=== PATIENT | female | born 1970 | race Caucasian/White ===

== ENCOUNTER 2019-05-08 06:00 | Outpatient (RCR) | payer MEDICAID, SELFPAY | END 2019-05-22 23:59 | disposition home or self-care (01) | LOC: MPT 06:00 | PROVIDERS: Family Provider Family Medicine; PCP Social Worker Clinical; Referring Provider Family Medicine; Visit Provider Family Medicine | DX: G89.29 Other chronic pain (principal); M54.9 Dorsalgia, unspecified | CPT/HCPCS: 97110; 97161; 97530 ==

== ENCOUNTER 2019-05-23 06:00 | Outpatient (RCR) | payer MEDICAID, SELFPAY | END 2019-06-21 23:59 | disposition home or self-care (01) | LOC: MPT 06:00 | PROVIDERS: Family Provider Family Medicine; PCP Social Worker Clinical; Referring Provider Family Medicine; Visit Provider Family Medicine | DX: G89.29 Other chronic pain (principal); M54.9 Dorsalgia, unspecified | CPT/HCPCS: 97110; 97530 ==

== ENCOUNTER 2019-06-22 06:00 | Outpatient (RCR) | payer MEDICAID, SELFPAY | END 2019-07-22 23:59 | disposition home or self-care (01) | LOC: MPT 06:00 | PROVIDERS: PCP Social Worker Clinical; Referring Provider Family Medicine; Visit Provider Family Medicine | DX: G89.29 Other chronic pain (principal); M54.9 Dorsalgia, unspecified | CPT/HCPCS: 97110; 97530 ==

== ENCOUNTER 2019-07-23 06:00 | Outpatient (RCR) | payer MEDICAID, SELFPAY | END 2019-08-21 23:59 | disposition home or self-care (01) | LOC: MPT 06:00 | PROVIDERS: PCP Family Medicine; Visit Provider Family Medicine | DX: G89.29 Other chronic pain (principal); M54.9 Dorsalgia, unspecified | CPT/HCPCS: 97110; 97530 ==

== ENCOUNTER 2019-07-30 09:07 | Outpatient (CLI) | payer MEDICAID, SELFPAY ==
--- NOTE | 2019-07-30 09:23 | MR_ITS ---
WS: [id number] MRI RIGHT SHOULDER NONCONTRAST TECHNIQUE: Sagittal T2, coronal T1, T2 and proton density imaging. Axial gradient PDE imaging. CLINICAL INFORMATION: M24.811 Other specific joint derangements of right should. COMPARISON: None. FINDINGS: Prior postoperative changes right rotator cuff repair. Moderate degenerative changes at the AC joint with mild downsloping of the acromion with slight subacromial spurring. Edema at the AC joint with mi ld synovial thickening. Rotator cuff appears grossly intact. Mild tendinopathy in the distal supraspi natus. Normal infraspinatus. Normal teres minor. Normal subscapularis. Normal biceps tendon in the bicipital groove. Normal rotator cuff anchor. Glenoid labrum appears hermila sly normal. Normal bone marrow signal. Intra-articular biceps tendon is normal in appearance. MR/MR shoulder RT wo con* [id number] IMPRESSION: 1. Prior postoperative changes right rotator cuff repair. No acute appearing r otator cuff tears. 2. Mild tendinopathy in the distal supraspinatus. Rotator cuff is otherwise un remarkable. 3. Moderate degenerative arthritis AC joint with mild downsloping acromion, a small amount of subacromial/subdeltoid edema. 4. Normal biceps tendon in the bicipital groove. Normal biceps labral anchor. 5. Glenoid labrum appears grossly unremarkable.
== END 2019-07-30 09:08 | disposition home or self-care (01) ==
LOC: RADWPI 09:12
PROVIDERS: PCP Family Medicine; Visit Provider Emergency Medicine
DX: M24.811 Other specific joint derangements of right shoulder, not elsewhere classified (principal); M13.811 Other specified arthritis, right shoulder
CPT/HCPCS: 73221

== ENCOUNTER → 2020-06-04 09:38 | Outpatient (BNVA) | payer MEDICAID, SELFPAY | PROVIDERS: Family Provider Family Medicine; PCP Family Medicine; Visit Provider Registered Nurse | DX: F33.1 Major depressive disorder, recurrent, moderate (principal); F43.12 Post-traumatic stress disorder, chronic | CPT/HCPCS: 36415; 82306 ==

== ENCOUNTER → 2020-06-09 09:50 | Outpatient (BNVA) | payer MEDICAID, SELFPAY | PROVIDERS: Family Provider Family Medicine; PCP Family Medicine; Visit Provider Family Medicine | DX: R53.83 Other fatigue (principal); Z13.1 Encounter for screening for diabetes mellitus; Z13.6 Encounter for screening for cardiovascular disorders; K90.49 Malabsorption due to intolerance, not elsewhere classified; Z86.19 Personal history of other infectious and parasitic diseases; R79.89 Other specified abnormal findings of blood chemistry; R53.82 Chronic fatigue, unspecified; E55.9 Vitamin D deficiency, unspecified; S46.911A Strain of unspecified muscle, fascia and tendon at shoulder and upper arm level, right arm, initial encounter; M54.9 Dorsalgia, unspecified; G89.29 Other chronic pain | CPT/HCPCS: 80053; 80061; 82607; 84443; 85025; 86003 ==

== ENCOUNTER → 2021-07-03 13:21 | Outpatient (BNVA) | payer BC, MEDICAID, SELFPAY | PROVIDERS: Family Provider Family Medicine; PCP Family Medicine; Visit Provider Emergency Medicine | DX: I10 Essential (primary) hypertension (principal); R63.5 Abnormal weight gain; Z86.39 Personal history of other endocrine, nutritional and metabolic disease | CPT/HCPCS: 80053; 80061; 83880; 84443; 85025 ==

== ENCOUNTER → 2022-03-20 16:18 | Outpatient (BNVA) | payer BC, MEDICAID, SELFPAY | PROVIDERS: Family Provider Family Medicine; PCP Family Medicine; Visit Provider Nurse Practitioner Family | DX: R68.89 Other general symptoms and signs (principal); B34.9 Viral infection, unspecified; B37.31 Acute candidiasis of vulva and vagina | CPT/HCPCS: 87071; 87077; 87184; 87400; 87426; 87880 ==

== ENCOUNTER → 2022-10-03 13:31 | Outpatient (BNVA) | payer BC, MEDICAID, SELFPAY | PROVIDERS: Family Provider Family Medicine; PCP Family Medicine; Visit Provider Emergency Medicine | DX: M79.672 Pain in left foot (principal) | CPT/HCPCS: 73630 ==

== ENCOUNTER → 2022-12-27 10:54 | Outpatient (BNVA) | payer BC, MEDICAID, SELFPAY | PROVIDERS: Family Provider Family Medicine; PCP Family Medicine; Visit Provider Nurse Practitioner Family | DX: R39.9 Unspecified symptoms and signs involving the genitourinary system (principal); J01.90 Acute sinusitis, unspecified; B96.89 Other specified bacterial agents as the cause of diseases classified elsewhere; B37.31 Acute candidiasis of vulva and vagina; N10 Acute pyelonephritis; N93.9 Abnormal uterine and vaginal bleeding, unspecified | CPT/HCPCS: 81000 ==

== ENCOUNTER → 2022-12-28 09:45 | Outpatient (BNVA) | payer BC, MEDICAID, SELFPAY | PROVIDERS: Family Provider Family Medicine; PCP Family Medicine; Visit Provider Nurse Practitioner | DX: N93.9 Abnormal uterine and vaginal bleeding, unspecified (principal); R53.83 Other fatigue; Z86.39 Personal history of other endocrine, nutritional and metabolic disease; N12 Tubulo-interstitial nephritis, not specified as acute or chronic; Z76.89 Persons encountering health services in other specified circumstances; B37.9 Candidiasis, unspecified | CPT/HCPCS: 80053; 82306; 82607; 83735; 84443; 85025; 87086 ==

== ENCOUNTER → 2023-01-19 09:56 | Outpatient (BNVA) | payer BC, MEDICAID, SELFPAY | PROVIDERS: Family Provider Family Medicine; PCP Family Medicine; Referring Provider Nurse Practitioner; Visit Provider Obstetrics & Gynecology | DX: R30.0 Dysuria (principal); Z12.4 Encounter for screening for malignant neoplasm of cervix; Z12.39 Encounter for other screening for malignant neoplasm of breast | CPT/HCPCS: 84315; 87086; 87624 ==

== ENCOUNTER → 2023-02-02 11:18 | Outpatient (BNVA) | payer BC, MEDICAID, SELFPAY | PROVIDERS: Family Provider Family Medicine; PCP Family Medicine; Visit Provider Obstetrics & Gynecology | DX: N93.9 Abnormal uterine and vaginal bleeding, unspecified (principal) | CPT/HCPCS: 76830 ==

== ENCOUNTER 2023-02-18 16:58 | Observation (INO) | payer BC, MEDICAID, SELFPAY ==
[2023-02-18 17:00] VITALS: BP 173/102; PULSE 75; RESP 18; TEMP 36.6; O2SAT 98; BMI 20.7
--- NOTE | 2023-02-18 17:03 | CTR_ITS ---
PROCEDURE INFORMATION: Exam: CT Head Without Contrast Exam date and time: 02/18/2023 5:14 PM Age: 52 years old Clinical indication: Altered mental status/memory loss; Confusion or disorientation; Additional info: TIA TECHNIQUE: Imaging protocol: Computed tomography of the head without contrast. Radiation optimization: All CT scans at this facility use at least one of these dose optimization techniques: automated exposure control; mA and/or kV adjustment per patient size (includes targeted exams where dose is matched to clinical indication); or iterative reconstruction. REPORTING DATA: Count of CT and Cardiac NM exams in prior 12 months: This patient has received 0 known CTs and 0 known cardiac nuclear medicine studies in the 12 months prior to the current study. COMPARISON: No relevant prior studies available. RADIATION DOSE METRICS: Total DLP (mGy-cm): 980.88 FINDINGS: Brain: No midline shift. Ventricles, cisterns, and sulci are normal. No mass, acute infarct, hemorrhage, or extraaxial fluid collection. Cerebral ventricles: No ventriculomegaly. Paranasal sinuses: Visualized sinuses are unremarkable. No fluid levels. Mastoid air cells: Visualized mastoid air cells are well aerated. Bones/joints: Unremarkable. No acute fracture. Soft tissues: Unremarkable. CT/CT head wo con* [id number] IMPRESSION: No acute intracranial abnormality.
--- NOTE | 2023-02-18 17:03 | XRR_ITS ---
PROCEDURE INFORMATION: Exam: XR Chest Exam date and time: 02/18/2023 5:31 PM Age: 52 years old Clinical indication: Patient HX: Lt side weakness/numbness; Fever; TIA; Ex smoker TECHNIQUE: Imaging protocol: Radiologic exam of the chest. Views: 1 view. COMPARISON: MR shoulder RT wo con* [id number] 07/30/2019 9:27 AM FINDINGS: Lungs: Unremarkable. No consolidation. Pleural spaces: Unremarkable. No pleural effusion. No pneumothorax. Heart/Mediastinum: Unremarkable. No cardiomegaly. Bones/joints: Unremarkable. XR/XR chest 1V portable [id number] IMPRESSION: No acute findings.
--- NOTE | 2023-02-18 17:06 | ED_ITS ---
HPI - Neuro Symptoms/Deficit 2 General: Chief Complaint: General Medical Stated Complaint: visual disturbance Time Seen by Provider: 02/18/23 17:00 Source: patient and EMS Mode of arrival: EMS Limitations: no limitations History of Present Illness: 52-year-old female states she was at [facility] today at 3 PM she states that she had had left-sided weakness along with blurred vision and slurred speech. She states this lasted roughly 30 minutes she states her symptoms of all resolved she has no slurred speech. She has full range of motion denies any history of stroke or TIA in the past. She does have migraines states she has a very mild headache Associated symptoms: Deny chest pain, headache(s), nausea or vomiting Review of Systems 2 Const: Denies: fever(s), chills, body aches or change in appetite Eyes: Reports: blurry vision; Denies: eye discomfort ENMT: Denies: throat pain or dental pain Card: Denies: chest pain Resp: Denies: dyspnea GI: Denies: abdominal pain, nausea, vomiting or diarrhea Musc: Denies: neck pain or back pain Skin/Breast: Denies: rash Neuro: Reports: numbness in extremities and weakness in extremities; Denies: headache(s) PFSH ED 2 PFSH: Medical History (Updated 02/18/23 @ 18:56 by Deann Marrero MD) Blurred vision, bilateral Stroke-like symptoms History of thyroid disease Weight gain High blood pressure determined by examination Internal derangement of right shoulder Right shoulder strain Irritable bowel syndrome Psoriasis Post-traumatic stress disorder, chronic Major depressive disorder, recurrent, moderate Surgical History H/O colonoscopy H/O esophagogastroduodenoscopy 09/2000 Hx of cholecystectomy History of repair of hiatal hernia History of nasal surgery History of prior ablation treatment uterine Family History Sister Anesthesia complication Mother Heart disease Other Bleeding disorder Diabetes Social History Smoking and tobacco/nicotine status: former use of tobacco/nicotine Second hand smoke exposure: No Alcohol intake: never Substance/Drug Use: never Household members: spouse Marital status: Current occupational status: disabled Current gender identity: Female Female Reproductive History: Spontaneous abortions: No NIH stroke score 2 NIHSS: Level Of Consciousness - 1a: 0 Level Of Consciousness Questions - 1b: Both Correct Level Of Consciousness Commands - 1c: Both Correct Best Gaze - 2: Normal Visual Mcclellan - 3: No Visual Loss Facial Palsy - 4: N ormal Motor Arm Right - 5: No Drift Motor Arm Left - 5: No Drift Motor Leg Right - 6: No Drift Motor Leg Left - 6: No Drift Limb Ataxia - 7: A bsent Sensory - 8: Normal Best Language - 9: No Aphasia Dysarthia - 10: Normal Extinction And Inattention - 11: 0 Score: Total Score: 0 Physical Exam 2 Const: COMMON NORMALS: no acute distress, patient oriented x3 and healthy appearing HENMT: COMMON NORMALS: normocephalic and atraumatic HEAD & SCALP: n ormocephalic and atraumatic Neck/C-Spine: COMMON NORMALS: full ROM and supple Chest: COMMONS NORMALS: normal inspection of the chest Resp: COMMON NORMALS: normal respiratory effort Cardio: COMMON NORMALS: regular rate, regular rhythm and No murmurs present (Cardio) RATE: regular rate RHYTHM: regular rhythm Extremity: COMMON NORMALS: normal to inspection and full ROM Neuro: COMMON NORMALS: patient oriented x3, moves all extremities and no focal motor deficits CRANIAL NERVES: Yes CN normal except as noted SPEECH: s peech normal GAIT: Yes Normal gait present MOTOR EXAM: 5/5 motor strength present throughout Psych: COMMON NORMALS: mental status grossly normal, Normal thought process present and cooperative THOUGHT PROCESS: Normal thought process present Skin: COMMON NORMALS: no rashes or lesions noted and no wounds GENERAL SKIN EXAM: no rashes or lesions noted Course 2 Vital Signs: Vital signs: Vital Signs Temperature 97.8 F 02/18/23 17:00 Pulse Rate 75 02/18/23 17:00 Respiratory Rate 18 02/18/23 17:00 Blood Pressure 173/102 02/18/23 17:00 Pulse Oximetry 98 02/18/23 17:00 Oxygen Delivery Me thod Room Air 02/18/23 17:00 MDM - Neuro Symptoms/Deficit Medical Decision Making Patient presents here with left-sided weakness blurred vision and slurred speech is all since resolved likely a TIA no history of TIA in the past spoke to the hospitalist will admit for observation. Medical Records I reviewed the patient's medical records. Lab Data I reviewed the patient's lab results. 02/18/23 17:47 02/18/23 17:47 Radiology Impressions Chest X-Ray 02/18/23 17:03 IMPRESSION: No acute findings. Head CT 02/18/23 17:03 IMPRESSION: No acute intracranial abnormality. Laboratory Results WBC 4.81 10^3/uL (3.29-11.43) 02/18/23 17:47 RBC 4.48 10^6/uL (3.85-5.65) 02/18/23 17:47 Hgb 13.90 g/dL (11.27-16.99) 02/18/23 17:47 Hct 42.6 % (36-47) 02/18/23 17:47 MCV 95.1 fl (85-98) 02/18/23 17:47 MCH 31.0 pg (27-33) 02/18/23 17:47 MCHC 32.6 g/dL (30-55) 02/18/23 17:47 RDW 12.6 % (12.1-15.1) 02/18/23 17:47 Plt Count 228 10^3/cmm (157-399) 02/18/23 17:47 MPV 9.5 fL (7.4-10.4) 02/18/23 17:47 Neut % (Auto) 58.6 % 02/18/23 17:47 Lymph % (Auto) 29.9 % 02/18/23 17:47 [place] % (Auto) 9.1 % 02/18/23 17:47 Eos % (Auto) 1.2 % 02/18/23 17:47 Baso % (Auto) 1.0 % 02/18/23 17:47 Neut # (Auto) 2.81 10^3/uL (1.8-7.7) 02/18/23 17:47 Lymph # (Auto) 1.4 10^3/uL (0.8-4.8) 02/18/23 17:47 [place] # (Auto) 0.4 10^3/uL (0.2-0.9) 02/18/23 17:47 Eos # (Auto) 0.1 10^3/uL (0.0-0.8) 02/18/23 17:47 Baso # (Auto) 0.1 10^3/uL (0.0-0.1) 02/18/23 17:47 Nucleated RBC % (auto) 0 % 02/18/23 17:47 Nucleated RBCs # 0.0 /100WBC 02/18/23 17:47 PT 13.70 SECONDS (12.1-14.9) 02/18/23 17:47 INR 1.02 (0.8-1.2) 02/18/23 17:47 Sodium 141 mmol/L (136-145) 02/18/23 17:47 Potassium 4.4 mmol/L (3.5-5.1) 02/18/23 17:47 Chloride 104 mmol/L (98-107) 02/18/23 17:47 Carbon Dioxide 26 mmol/L (22-29) 02/18/23 17:47 Anion Gap 15.4 (5-19) 02/18/23 17:47 BUN 9 mg/dL (6-20) 02/18/23 17:47 Creatinine 0.8 mg/dL (0.5-0.9) 02/18/23 17:47 GFR Calculation 75.9 mL/min (90-130) L 02/18/23 17:47 Glucose 118 mg/dL (65-115) H 02/18/23 17:47 Calculated Osmolality 292 mOsm/kg (285-295) 02/18/23 17:47 Calcium 9.4 mg/dL (8.5-10.5) 02/18/23 17:47 Total Bilirubin 0.4 mg/dL (0.15-1.2) 02/18/23 17:47 AST 14 U/L (0-32) 02/18/23 17:47 ALT 9 U/L (0-33) 02/18/23 17:47 Alkaline Phosphatase 57 U/L (35-105) 02/18/23 17:47 Total Protein 6.9 g/dL (6.6-8.7) 02/18/23 17:47 Albumin 4.5 g/dL (3.5-5.2) 02/18/23 17:47 Globulin 2.4 g/dL (1.3-4.6) 02/18/23 17:47 All radiology interpretation(s) finalized by discharge EKG Data EKG 1: I personally reviewed and interpreted this EKG as follows: EKG interpretation date: 02/18/23 EKG interpretation time: 17:10 Interpretation: nsr hr [address] or t wave abnormalities qrs 94 qtc 427 Discharge Plan Discharge Patient Disposition: Placed in Observation Clinical Impression: Brain TIA Referrals: Ana Damico DO [Physician] - Maria Isabel Ramos MD [Primary Care Provider] - Coding Level of Care Code ED Bilingual Teacher Assistant for Chg Surekha
--- NOTE | 2023-02-18 17:10 | ECG_ITS ---
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 Measurements Intervals Rodeo Rate: 75 P: 55 NH: 137 QRS: -9 QRSD: 94 T: 46 QT: 398 QTc: 446 Interpretive Statements SINUS RHYTHM LEFT ATRIAL ENLARGEMENT [-0.15mV P-WAVE IN V1/V2] POSSIBLE RIGHT VENTRICULAR CONDUCTION DELAY [RSR (QR) IN V1/V2] No previous ECG available for comparison Electronically Signed On 02-18-2023 17:28:41 SCRAP KETTLE TENDER by Luis Miguel Willoughby M.D. [id number]
[2023-02-18 18:04] LABS: Basophils # 0.1 10^3/uL (0.0-0.1); Eosinophils # 0.1 10^3/uL (0.0-0.8); Eosinophils % 1.2 %; Hematocrit 42.6 % (36-47); Lymphocytes # 1.4 10^3/uL (0.8-4.8); Lymphocytes % 29.9 %; Mean Corpuscular HGB Conc 32.6 g/dL (30-55); Mean Corpuscular Volume 95.1 fl (85-98); Mean Platelet Volume 9.5 fL (7.4-10.4); Monocytes # 0.4 10^3/uL (0.2-0.9); Monocytes % 9.1 %; Neutrophils # 2.81 10^3/uL (1.8-7.7); Neutrophils % 58.6 %; Nucleated Red Blood Cells % 0 %; Platelet Count 228 10^3/cmm (157-399); Red Blood Count 4.48 10^6/uL (3.85-5.65); Red Cell Distribution Width 12.6 % (12.1-15.1); White Blood Count 4.81 10^3/uL (3.29-11.43)
[2023-02-18 18:22] LABS: INR 1.02 (0.8-1.2)
[2023-02-18 18:34] LABS: Alanine Aminotransferase 9 U/L (0-33); Albumin Level 4.5 g/dL (3.5-5.2); Alkaline Phosphatase 57 U/L (35-105); Aspartate Amino Transferase 14 U/L (0-32); Blood Urea Nitrogen 9 mg/dL (6-20); Calcium 9.4 mg/dL (8.5-10.5); Carbon Dioxide 26 mmol/L (22-29); Chloride 104 mmol/L (98-107); Globulin 2.4 g/dL (1.3-4.6); Glomerular Filtration Rate 75.9 mL/min (90-130); Glucose 118 mg/dL (65-115); Osmolality Calculated 292 mOsm/kg (285-295); Sodium 141 mmol/L (136-145); Total Bilirubin 0.4 mg/dL (0.15-1.2); Total Protein 6.9 g/dL (6.6-8.7)
[2023-02-18 18:35] LABS: Anion Gap 15.4 (5-19); Potassium 4.4 mmol/L (3.5-5.1)
[2023-02-18] MEDS: aspirin 81 mg Chew Tablet 324 MG PO (19:03)
--- NOTE | 2023-02-18 19:39 | CTR_ITS ---
PROCEDURE INFORMATION: Exam: CTA Head With Contrast, Arteriography Exam date and time: 02/18/2023 7:45 PM Age: 52 years old Clinical indication: Numbness and speech disturbance and visual disturbance; Other visual defect; Patient HX: Left sided numbness with blurred vision and slurred speech. ; Additional info: TIA, CT angiogram cervical and intracranial vessels TECHNIQUE: Imaging protocol: Computed tomographic angiography of the head with contrast. Exam focused on the arteries. 3D rendering (Not supervised by radiologist): MIP and/or 3D reconstructed images were created by the technologist. Radiation optimization: All CT scans at this facility use at least one of these dose optimization techniques: automated exposure control; mA and/or kV adjustment per patient size (includes targeted exams where dose is matched to clinical indication); or iterative reconstruction. Contrast material: OMNI 350; Contrast volume: 100 ml; Contrast route: INTRAVENOUS (IV); REPORTING DATA: Count of CT and Cardiac NM exams in prior 12 months: This patient has received 0 known CTs and 0 known cardiac nuclear medicine studies in the 12 months prior to the current study. COMPARISON: CT head wo con* [id number] 02/18/2023 5:14 PM RADIATION DOSE METRICS: Total DLP (mGy-cm): 384.77 FINDINGS: ANTERIOR CIRCULATION: Right internal carotid artery: Intracranial segment is patent with no significant stenosis. No aneurysm. Right middle cerebral artery: No occlusion or significant stenosis. No aneurysm. Right anterior cerebral artery: No occlusion or significant stenosis. No aneurysm. Left internal carotid artery: Intracranial segment is patent with no significant stenosis. No aneurysm. Left middle cerebral artery: No occlusion or significant stenosis. No aneurysm. Left anterior cerebral artery: No occlusion or significant stenosis. No aneurysm. POSTERIOR CIRCULATION: Right vertebral artery: No occlusion or significant stenosis. No aneurysm. Left vertebral artery: No occlusion or significant stenosis. No aneurysm. Basilar artery: No occlusion or significant stenosis. No aneurysm. Right posterior cerebral artery: No occlusion or significant stenosis. No aneurysm. Left posterior cerebral artery: No occlusion or significant stenosis. No aneurysm. Brain: No definite mass, mass effect, or midline shift. Cerebral ventricles: No ventriculomegaly. Bones/joints: Unremarkable. No acute fracture. Soft tissues: Unremarkable. PROCEDURE INFORMATION: Exam: CTA Neck With Contrast Exam date and time: 02/18/2023 7:45 PM Age: 52 years old Clinical indication: Numbness and speech disturbance and visual disturbance; Other visual defect; Patient HX: Left sided numbness with blurred vision and slurred speech. ; Additional info: TIA, CT angiogram cervical and intracranial vessels TECHNIQUE: Imaging protocol: Computed tomographic angiography of the neck with contrast. Exam focused on the cervical segments of the vasculature. 3D rendering (Not supervised by radiologist): MIP and/or 3D reconstructed images were created by the technologist. Radiation optimization: All CT scans at this facility use at least one of these dose optimization techniques: automated exposure control; mA and/or kV adjustment per patient size (includes targeted exams where dose is matched to clinical indication); or iterative reconstruction. Contrast material: OMNI 350; Contrast volume: 100 ml; Contrast route: INTRAVENOUS (IV); REPORTING DATA: Count of CT and Cardiac NM exams in prior 12 months: This patient has received 0 known CTs and 0 known cardiac nuclear medicine studies in the 12 months prior to the current study. COMPARISON: CT head wo con* [id number] 02/18/2023 5:14 PM RADIATION DOSE METRICS: Total DLP (mGy-cm): 384.77 FINDINGS: Right common carotid artery: No stenosis. No dissection or occlusion. Right internal carotid artery: Mild stenosis at the origin. No dissection or occlusion. Right external carotid artery: No occlusion or stenosis of the origin. Left common carotid artery: No stenosis. No dissection or occlusion. Left internal carotid artery: Mild stenosis at the origin. No dissection or occlusion. Left external carotid artery: No occlusion or stenosis of the origin. Right vertebral artery: No stenosis. No dissection or occlusion. Left vertebral artery: No stenosis. No dissection or occlusion. Soft tissues: Normal. No significant soft tissue swelling. Bones/joints: No acute fracture. CT/CT angio headneck* [id number] IMPRESSION: No large vessel stenosis or occlusion. IMPRESSION: Mild stenosis at the origins of the internal carotid arteries. No severe stenosis or occlusion. REFERENCES: NASCET CRITERIA. The degree of stenosis in the cervical segment of the internal carotid artery is based on NASCET criteria. Normal is no stenosis. Mild is less than 50% stenosis. Moderate is 50-69% stenosis. Severe is 70% to 99% stenosis. Total occlusion is no detectable patent lumen.
[2023-02-18] MEDS: iohexol 350 mg/mL 500 mL Btl (per mL) IV (19:50)
[2023-02-18 20:02] LABS: Alcohol Level < 10 mg/dL (0-10)
--- NOTE | 2023-02-18 20:14 | P.HP_ITS ---
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 She denies any nausea, vomiting, headache, dizziness, similar complaints in the past or history of stroke. She does give family history of stroke, carotid artery disease. She also Giurgius personal history of possible hypertension but not on any medications. She is admitted for further evaluation and management of possible TIA. Review of Systems 2 General: Reports: 10 or more systems reviewed and unremarkable except in HPI and below Const: Denies: fever(s), chills, body aches, change in appetite, change in weight, malaise, night sweats, diaphoresis, change in sleep pattern, daytime sleepiness or snoring Eyes: Denies: change in vision, blurry vision, photophobia, eye discomfort or eye discharge ENMT: Denies: throat pain, enlarged tonsils, hoarseness, mouth pain, oral sores, dry mouth, tinnitus, nasal congestion or post nasal drip Card: Denies: chest pain, palpitations, irregular heart rhythm, edema, swelling of feet/ankles, lightheadedness, syncope, pre-syncope, dyspnea on exertion, orthopnea, leg pain with exertion or acrocyanosis Resp: Denies: dyspnea, productive cough, non-productive cough, wheezing, stridor, pain on inspiration, change in phlegm color, hemoptysis or chest congestion GI: Denies: abdominal pain, nausea, vomiting, hematemesis, coffee ground emesis, dysphagia, heartburn, diarrhea, constipation, bloating, GI cramping, change in bowel habits, pain on defecation, hematochezia or melena : Denies: flank pain, dysuria, urinary frequency, urinary urgency, urinary hesitancy, nocturia or hematuria Musc: Denies: neck pain, back pain, extremity pain, joint pain, joint swelling, joint redness, joint stiffness or limited range of motion Neuro: Denies: headache(s), numbness in extremities, weakness in extremities, sensory changes, lack of coordination, difficulty walking, frequent falls, dizziness, vertigo, confusion, Slurred speech present, difficulty communicating thoughts or seizure-like activity Psych: Denies: anxiety, depression, mood swings, panic attacks, hopelessness or irritability Endo: Denies: polyuria, polydipsia, tired all the time, cold intolerance, excessive sweating, flushing or heat intolerance Antonio/Lymph: Denies: easy bruising or easy bleeding All/Imm: Denies: tongue swelling, facial swelling or acute wheezing Medications/Allergies Home Medications Medication Instructions Recorded Confirmed Last Taken Type No Known Home Medications 02/18/23 02/18/23 Unknown History Allergies Allergy/AdvReac Type Severity Reaction Status Date / Time Penicillins Allergy Intermediate Hives Verified 02/18/23 17:06 acetaminophen [From Vicodin] Allergy Mild upsets Verified 02/18/23 17:06 stomach hydrocodone [From Vicodin] Allergy Mild upsets Verified 02/18/23 17:06 stomach PFSH Acute 2 PFSH: Medical History (Updated 02/18/23 @ 20:18 by Aureliano Norwood MD) Endometriosis Lyme disease H/O Domo thyroiditis Blurred vision, bilateral Stroke-like symptoms History of thyroid disease Weight gain High blood pressure determined by examination Internal derangement of right shoulder Right shoulder strain Irritable bowel syndrome Psoriasis Post-traumatic stress disorder, chronic Major depressive disorder, recurrent, moderate Surgical History H/O colonoscopy H/O esophagogastroduodenoscopy 09/2000 Hx of cholecystectomy History of repair of hiatal hernia History of nasal surgery History of prior ablation treatment uterine Family History (Updated 02/18/23 @ 22:27 by Aureliano Norwood MD) Sister Anesthesia complication Mother Heart disease Carotid artery disease Other Bleeding disorder CAD (coronary artery disease) Diabetes Social History (Updated 02/18/23 @ 22:26 by Aureliano Norwood MD) Smoking and tobacco/nicotine status: former use of tobacco/nicotine Second hand smoke exposure: No Alcohol intake: never Substance/Drug Use: never Caregiver/support person: Yes Lives independently: Yes Household members: spouse Housing: House Marital status: Current occupational status: disabled Current gender identity: Female Female Reproductive History: Spontaneous abortions: No Vitals/I&O/Wt Last Vital Signs Temp 97.8 F 02/18/23 17:00 Pulse 75 02/18/23 17:00 Resp 18 02/18/23 17:00 BP 173/102 02/18/23 17:00 Pulse Ox 98 02/18/23 17:00 O2 Del Method Room Air 02/18/23 17:00 Weight last 48 hrs Weight 48.081 kg Physical Exam 2 Narrative: General: No acute distress, AO x3 HEENT: PERRLA, pupils bilaterally equal and reactive Chest: Normal vesicular breath sounds, no added sounds, equal good air entry bilaterally CVS: S1-S2 regular, no murmurs, no tachycardia, no gallops, no rubs Abdomen: Soft, nontender, no organomegaly, bowel sounds present Neuro: No focal deficits, no facial deformity, AO x3, power 5/5 in all limbs Data 02/18/23 17:47 02/18/23 17:47 A&P Assessment and plan (1) Brain TIA: Appreciate CT head results. Check CTA head and neck. Check echocardiogram, A1c, B12, folate, TSH levels. Telemonitoring. Goal blood pressure less than 140/90 mmHg. Patient does have history of hypertension though not on medications. Will continue to monitor and add medications accordingly. Aspirin 81 mg daily, atorvastatin 40 mg daily. Check lipid panel. (2) Major depressive disorder, recurrent, moderate: (3) High blood pressure determined by examination: Plan Full code Cardiac diet PT/OT/speech evaluation. Heparin 5000 every 12 hourly for DVT prophylaxis Famotidine for PUD prophylaxis. Attestations 2 Medical Necessity Statement*: Admission under observation for further evaluation and management of TIA Coding Level of Care Code Acute Code for Chg Fwd Diagnoses Brain TIA G45.9 Major depressive disorder, recurrent, moderate F33.1 High blood pressure determined by examination I10
[2023-02-18 21:05] VITALS: BP 167/97; PULSE 64; RESP 16; O2SAT 98
[2023-02-18 21:39] VITALS: BP 170/95; PULSE 62; RESP 19; TEMP 36.6; O2SAT 98
[2023-02-18 21:47] VITALS: BMI 20.7
[2023-02-18] MEDS: atorvastatin 40 mg Tablet PO (22:05)
[2023-02-18] MEDS: heparin 5,000 unit/mL INJ 1 mL 5000 UNIT SUBCUT (22:05)
[2023-02-18 22:58] VITALS: PULSE 65
[2023-02-18 23:33] LABS: Add Urine Microscopic? YES; Bilirubin Urine Neg (Negative); Blood Urine Neg (Negative); Glucose Urine UA Norm (Normal); Ketones Urine 1+ (Negative); Leukocyte Esterase Urine Negative (Negative); Nitrate Urine Negative (Negative); Protein Urine Neg (Negative); Urine Appearance Cloudy (CLEAR); Urine Color Yellow (Yellow); Urobilinogen Urine Norm (Negative); pH Urine 8 (5-7)
[2023-02-18 23:34] LABS: Bacteria Urine 2+ /hpf; RBC Urine 0-4 /hpf (0-2); Squamous Epithelial Cell Urine 0-4 /hpf (0-5); WBC Urine 0-4 /hpf (0-5)
[2023-02-18 23:39] LABS: Amphetamines Screen Urine Negative (Negative); Barbiturates Screen Urine Negative (Negative); Benzodiazepines Screen Urine Negative (Negative); Cocaine Screen Urine Negative (Negative); Opiate Screen Urine Negative (Negative); PCP Screen Urine Negative (Negative); THC Screen Urine Negative (Negative)
[2023-02-18 23:43] VITALS: BP 151/81; PULSE 83; RESP 17; TEMP 36.5; O2SAT 99
[2023-02-18 23:45] VITALS: BP 151/81; PULSE 83; RESP 17; TEMP 36.5; O2SAT 99
[2023-02-18 23:56] LABS: Iron 73 ug/dL (37-145); Percent Saturation 24.2 % (20-50); Total Iron Binding Capacity 301 mcg/dl; Unsaturated Iron Binding 228 ug/dL (112-347)
[2023-02-19 04:40] VITALS: BP 114/73; PULSE 76; RESP 18; TEMP 37.1; O2SAT 97
[2023-02-19 05:11] LABS: Chol HDL Ratio 2.55 mg/dL (0.0-4.40); Cholesterol 166 mg/dL (0-200); HDL Cholesterol 65 mg/dL (60-100); LDL Cholesterol Calculated 83 mg/dL (50-129); LDL HDL Ratio 1.28 RATIO (0.00-3.22); Phosphorus 4.6 mg/dL (2.5-4.5); Triglycerides 92 mg/dL (0-150); VLDL Cholestrol Calculation 18 mg/dL (0-30)
[2023-02-19 05:15] LABS: Estmated Average Glucose 108; Hemoglobin A1C 5.4 % (4.0-6.0)
--- NOTE | 2023-02-19 06:00 | USCV_ITS ---
Jeanmarie Roseline Age: 52 Gender: F : 1970 Exam Date: 02/19/2023 10:19 Ordering Phys: Aureliano Norwood MD Technologist: Presley Triana Exam Location: [facility] [place] Indication: tia BP: 109 / 61 HR: 61 Rhythm: Sinus Technical Quality: Adequate MEASUREMENTS (Male / Female) Normal Values 2D ECHO LVOT Diameter 2.0 cm LV Ejection Fraction MOD 2C 65.6 % LV Ejection Fraction 2C AL 64.6 % LA Diameter 3.1 cm LA Width 3.6 cm LA Height 3.7 cm RA Width 2.8 cm RA Height 3.7 cm Aorta at Sinotubular Diameter 1.8 cm IVC Diameter 1.7 cm M-MODE Aortic Annulus Diameter 2.7 cm LA Ao Ratio MM 1.1 MV E Point Septal Separation 0.2 cm DOPPLER AV Peak Velocity 126.3 cm/s LVOT Peak Velocity 99.0 cm/s AV Area Cont Eq vti 2.1 cm squared AV Area Cont Eq pk 2.5 cm squared MV Peak Velocity 88.0 cm/s MV Area PHT 5.0 cm squared Mitral E to A Ratio 1.3 MV E' Velocity 51.0 cm/s Mitral E to MV E' Ratio 12.2 Mitral E to LV E' Lateral Ratio 10.4 Mitral E to LV E' Septal Ratio 14.7 Right Atrial Pressure 3.0 mmHg PV Peak Velocity 82.0 cm/s RV Acceleration Time 0.2 s RV Ejection Time 0.3 s RV AcT/ET 0.5 FINDINGS Left Ventricle LV systolic function is normal with EF of 60 to 65%. No regional wall motion abnormalities are seen. Echogenic structure seen in left ventricle possibly prominent papillary muscles. Right Ventricle Normal in size and function Right Atrium Normal in size Left Atrium Normal in size Mitral Valve Structurally normal mitral valve. Trace mitral regurgitation Aortic Valve Structurally normal aortic valve. No significant stenosis or regurgitation. Tricuspid Valve Mild tricuspid regurgitation. Insufficient TR jet to calculate RVSP Pulmonic Valve Not well-visualized Pericardium Normal Aorta Normal in size IVC Appears to be normal CONCLUSIONS LV systolic function is normal with EF of 60 to 65%. Echogenic structure seen in left ventricle possible prominent papillary muscles. Trace mitral regurgitation Mild tricuspid regurgitation No comparison studies are available. Luis Miguel Willoughby MD (Electronically Signed) Final Date: 19 February 2023 11:49 S
[2023-02-19 06:44] VITALS: PULSE 52
[2023-02-19 08:00] VITALS: BP 109/61; PULSE 95; RESP 14; TEMP 36.6; O2SAT 98
[2023-02-19] MEDS: heparin 5,000 unit/mL INJ 1 mL 5000 UNIT SUBCUT (09:03)
[2023-02-19] MEDS: aspirin 81 mg EC Tablet PO (09:03)
--- NOTE | 2023-02-19 10:42 | PC.OT ---
OT EVALUATION ATTEMPTED. PATIENT IN PROCESS OF GETTING ULTRASOUND. PATIENT AND BEHAVIOUR SUPPORT TEACHER BOTH REPORT THAT THE PATIENT IS BEING D/C TODAY.
--- NOTE | 2023-02-19 11:18 | P.DS_ITS ---
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 She denies any nausea, vomiting, headache, dizziness, similar complaints in the past or history of stroke. She does give family history of stroke, carotid artery disease. She also Giurgius personal history of possible hypertension but not on any medications. She is admitted for further evaluation and management of possible TIA. Patient did not have any further strokelike symptoms. She remained hemodynamically stable and afebrile. Did not have any events on telemetry. Blood work was appreciated for normal A1c and lipid panel. Blood work was also sent for concern for autoimmune disorder given history of Domo's. She has been discharged hemodynamically stable condition on aspirin and statin with advised to follow-up with neurology in 2 weeks. She has been counseled in detail about lifestyle modifications. Physical Exam Narrative: General: No acute distress, AO x3 HEENT: PERRLA, pupils bilaterally equal and reactive Chest: Normal vesicular breath sounds, no added sounds, equal good air entry bilaterally CVS: S1-S2 regular, no murmurs, no tachycardia, no gallops, no rubs Abdomen: Soft, nontender, no organomegaly, bowel sounds present Neuro: No focal deficits, no facial deformity, AO x3, power 5/5 in all limbs Discharge Data Studies Completed and Pending Completed Studies During Hospitalization Category Date Time Status CT angio headneck* [id number] Stat Cat Scan 02/18/23 19:[address] head wo con* [id number] Stat Cat Scan 02/18/23 17:03 Completed XR chest 1V portable [id number] Stat Exams 02/18/23 17:03 Completed Pending at discharge Category Date Time Status MAG [Magnesium] AM LABS Lab 02/21/23 04:00 Ordered MAG [Magnesium] AM LABS Lab 02/20/23 04:00 Ordered [facility] Profile Routine Lab 02/19/23 11:17 Ordered PHOS [Phosphorus] AM LABS Lab 02/21/23 04:00 Ordered PHOS [Phosphorus] AM LABS Lab 02/20/23 04:00 Ordered CV. echo complete* [id number] Routine Ultrasound 02/19/23 06:00 Taken Radiology Impressions Chest X-Ray 02/18/23 17:03 IMPRESSION: No acute findings. Head CT 02/18/23 17:03 IMPRESSION: No acute intracranial abnormality. Head/Neck CTA 02/18/23 19:39 IMPRESSION: No large vessel stenosis or occlusion. IMPRESSION: Mild stenosis at the origins of the internal carotid arteries. No severe stenosis or occlusion. REFERENCES: NASCET CRITERIA. The degree of stenosis in the cervical segment of the internal carotid artery is based on NASCET criteria. Normal is no stenosis. Mild is less than 50% stenosis. Moderate is 50-69% stenosis. Severe is 70% to 99% stenosis. Total occlusion is no detectable patent lumen. Laboratory Results WBC 4.81 10^3/uL (3.29-11.43) 02/18/23 17:47 RBC 4.48 10^6/uL (3.85-5.65) 02/18/23 17:47 Hgb 13.90 g/dL (11.27-16.99) 02/18/23 17:47 Hct 42.6 % (36-47) 02/18/23 17:47 MCV 95.1 fl (85-98) 02/18/23 17:47 MCH 31.0 pg (27-33) 02/18/23 17:47 MCHC 32.6 g/dL (30-55) 02/18/23 17:47 RDW 12.6 % (12.1-15.1) 02/18/23 17:47 Plt Count 228 10^3/cmm (157-399) 02/18/23 17:47 MPV 9.5 fL (7.4-10.4) 02/18/23 17:47 Neut % (Auto) 58.6 % 02/18/23 17:47 Lymph % (Auto) 29.9 % 02/18/23 17:47 [place] % (Auto) 9.1 % 02/18/23 17:47 Eos % (Auto) 1.2 % 02/18/23 17:47 Baso % (Auto) 1.0 % 02/18/23 17:47 Neut # (Auto) 2.81 10^3/uL (1.8-7.7) 02/18/23 17:47 Lymph # (Auto) 1.4 10^3/uL (0.8-4.8) 02/18/23 17:47 [place] # (Auto) 0.4 10^3/uL (0.2-0.9) 02/18/23 17:47 Eos # (Auto) 0.1 10^3/uL (0.0-0.8) 02/18/23 17:47 Baso # (Auto) 0.1 10^3/uL (0.0-0.1) 02/18/23 17:47 Nucleated RBC % (auto) 0 % 02/18/23 17:47 Nucleated RBCs # 0.0 /100WBC 02/18/23 17:47 PT 13.70 SECONDS (12.1-14.9) 02/18/23 17:47 INR 1.02 (0.8-1.2) 02/18/23 17:47 Sodium 141 mmol/L (136-145) 02/18/23 17:47 Potassium 4.4 mmol/L (3.5-5.1) 02/18/23 17:47 Chloride 104 mmol/L (98-107) 02/18/23 17:47 Carbon Dioxide 26 mmol/L (22-29) 02/18/23 17:47 Anion Gap 15.4 (5-19) 02/18/23 17:47 BUN 9 mg/dL (6-20) 02/18/23 17:47 Creatinine 0.8 mg/dL (0.5-0.9) 02/18/23 17:47 GFR Calculation 75.9 mL/min (90-130) L 02/18/23 17:47 Glucose 118 mg/dL (65-115) H 02/18/23 17:47 Estimat Average Glucose 108 02/19/23 04:15 Hemoglobin A1c 5.4 % (4.0-6.0) 02/19/23 04:15 Calculated Osmolality 292 mOsm/kg (285-295) 02/18/23 17:47 Calcium 9.4 mg/dL (8.5-10.5) 02/18/23 17:47 Phosphorus 4.6 mg/dL (2.5-4.5) H 02/19/23 04:15 Magnesium 2.0 mg/dL (1.7-2.3) 02/19/23 04:15 Iron 73 ug/dL (37-145) 02/18/23 17:47 TIBC 301 mcg/dl 02/18/23 17:47 % Saturation 24.2 % (20-50) 02/18/23 17:47 Unsat Iron Binding 228 ug/dL (112-347) 02/18/23 17:47 Total Bilirubin 0.4 mg/dL (0.15-1.2) 02/18/23 17:47 AST 14 U/L (0-32) 02/18/23 17:47 ALT 9 U/L (0-33) 02/18/23 17:47 Alkaline Phosphatase 57 U/L (35-105) 02/18/23 17:47 Total Protein 6.9 g/dL (6.6-8.7) 02/18/23 17:47 Albumin 4.5 g/dL (3.5-5.2) 02/18/23 17:47 Globulin 2.4 g/dL (1.3-4.6) 02/18/23 17:47 Triglycerides 92 mg/dL (0-150) 02/19/23 04:15 Cholesterol 166 mg/dL (0-200) 02/19/23 04:15 LDL Cholesterol, Calc 83 mg/dL (50-129) 02/19/23 04:15 Total VLDL Cholesterol 18 mg/dL (0-30) 02/19/23 04:15 HDL Cholesterol 65 mg/dL (60-100) 02/19/23 04:15 LDL/HDL Ratio 1.28 RATIO (0.00-3.22) 02/19/23 04:15 Cholesterol/HDL Ratio 2.55 mg/dL (0.0-4.40) 02/19/23 04:15 Folate 10.0 ng/mL (4.8-37.3) 02/19/23 04:15 TSH 1.70 uIU/mL (0.27-4.20) 02/18/23 17:47 Urine Color Yellow (Yellow) 02/18/23 21:39 Urine Appearance Cloudy (CLEAR) A 02/18/23 21:39 Urine pH 8 (5-7) H 02/18/23 21:39 Ur Specific [place] 1.010 (1.005-1.030) 02/18/23 21:39 Urine Protein Neg (Negative) 02/18/23 21:39 Urine Glucose (UA) Norm (Normal) 02/18/23 21:39 Urine Ketones 1+ (Negative) H 02/18/23 21:39 Urine Blood Neg (Negative) 02/18/23 21:39 Urine Nitrate Negative (Negative) 02/18/23 21:39 Urine Bilirubin Neg (Negative) 02/18/23 21:39 Urine Urobilinogen Norm mg/dL (Negative) 02/18/23 21:39 Ur Leukocyte Esterase Negative (Negative) 02/18/23 21:39 Urine RBC 0-4 /hpf (0-2) H 02/18/23 21:39 Urine WBC 0-4 /hpf (0-5) H 02/18/23 21:39 Ur Squamous Epith Cells 0-4 /hpf (0-5) H 02/18/23 21:39 Amorphous Sediment Not Reportable 02/18/23 21:39 Urine Bacteria 2+ /hpf (NONE) H 02/18/23 21:39 Urine Opiates Screen Negative ng/mL (Negative) 02/18/23 21:39 Ur Barbiturates Screen Negative ng/mL (Negative) 02/18/23 21:39 Ur Phencyclidine Scrn Negative ng/mL (Negative) 02/18/23 21:39 Ur Amphetamines Screen Negative ng/mL (Negative) 02/18/23 21:39 U Benzodiazepines Scrn Negative ng/mL (Negative) 02/18/23 21:39 Urine Cocaine Screen Negative ng/mL (Negative) 02/18/23 21:39 U Marijuana (THC) Screen Negative ng/mL (Negative) 02/18/23 21:39 Ethyl Alcohol < 10 mg/dL (0-10) 02/18/23 17:47 Vitals Last Vital Signs Temp 97.9 F 02/19/23 08:00 Pulse 95 02/19/23 08:00 Resp 14 02/19/23 08:00 BP 109/61 02/19/23 08:00 Pulse Ox 98 02/19/23 08:00 O2 Del Method Room Air 02/19/23 08:00 Discharge Plan Discharge Patient Disposition: Home Condition: Stable Prescriptions: New atorvastatin 40 mg Tablet 20 mg PO BEDTIME Qty: 15 0RF aspirin 81 mg Tablet,Delayed Release (Dr/Ec) 81 mg PO DAILY Qty: 30 0RF Discharge Orders: Discharge Order (Routine); Ordered 02/19/23 Ordered By: Aureliano Norwood Referrals: Shravan Pham MD [Physician] - 2 weeks (We have notified your physician's clinic of the need for a follow-up appointment to be scheduled. If you have not heard from them within the next 2 business days, please call them directly. ) Ana Damico DO [Physician] - (We have notified your physician's clinic of the need for a follow-up appointment to be scheduled. If you have not heard from them within the next 2 business days, please call them directly. ) Maria Isabel Ramos MD [Primary Care Provider] - 02/22/23 11:00 am () Discharge Diet: Cardiac Discharge Activity: Resume usual activity and Increase activity as tolerated Patient Instructions: Aspirin (By mouth), Atorvastatin (By mouth), Transient Ischemic Attack (GEN), Opioid Safety, Stroke Stoplight Activity Restrictions/Additional Instructions: Please check your blood pressures daily at home maintain a blood pressure diary. Follow-up with a primary care provider within next 2 weeks with a blood pressure diary to start on antihypertensives if needed. Please follow-up with neurology within the next 2 weeks. Continue taking baby aspirin and atorvastatin as prescribed. Discharge Attestations Time Spent in Discharge Care*: greater than 30 min Specific Discharge Activities: educating patient, discussing with pcp/other providers, discussing with window caser/social workers/dc planners, documenting/other paperwork and evaluating patient/reviewing data Status at Discharge: Cognitive status at discharge: cognitively intact , Behavioral status at discharge: cooperative , Functional status at discharge: independent ambulation , Overall status at discharge: patient is back to baseline Quality Metrics Clinical Quality Measures [ No reported AMI, CVA or VTE this stay] Coding Level of Care Code 03858 Total time (in minutes) for Discharge: 60 Diagnoses Brain TIA G45.9 Major depressive disorder, recurrent, moderate F33.1 High blood pressure determined by examination I10
[2023-02-19 12:00] VITALS: BP 116/71; PULSE 94; RESP 16; TEMP 36.8; O2SAT 100
[2023-02-19 15:15] VITALS: BP 116/71; PULSE 94; RESP 16; TEMP 36.8; O2SAT 100
[2023-02-22 13:49] LABS: Anti-Double Strand DNA AB <1 IU/mL; Jo-1 Antibody <1.0 NEG AI (<1.0 NEG); SM/RNP Antibodies <1.0 NEG AI (<1.0 NEG); SS-B/LA IGG <1.0 NEG AI (<1.0 NEG); Scleroderma Ab(Scl-70) Ab <1.0 NEG AI (<1.0 NEG); Ss-A/Ro Igg <1.0 NEG AI (<1.0 NEG)
== END 2023-02-19 14:50 | disposition home or self-care (01) ==
LOC: ER 19:02 → MEDSURG 19:54
PROVIDERS: Admitting Provider Student in an Organized Health Care Education/Training Program; Emergency Provider Emergency Medicine; PCP Family Medicine; Visit Provider Student in an Organized Health Care Education/Training Program
DX: G45.9 Transient cerebral ischemic attack, unspecified (principal); F33.1 Major depressive disorder, recurrent, moderate; I10 Essential (primary) hypertension; E06.3 Autoimmune thyroiditis; F43.10 Post-traumatic stress disorder, unspecified; Z82.3 Family history of stroke; Z82.49 Family history of ischemic heart disease and other diseases of the circulatory system; Z87.891 Personal history of nicotine dependence
CPT/HCPCS: 36415; 70450; 70496; 70498; 71045; 80053; 80061; 80306; 80307; 81001; 82746; 83036; 83540; 83550; 83735; 84100; 84443; 85025; 85610; 86225; 86235; 93005; 93306; 96372; 99285; G0378; J1644; Q9967

== ENCOUNTER 2023-03-07 17:22 | Emergency (ER) | payer BC, SELFPAY ==
[2023-03-07 17:28] VITALS: BP 185/103; PULSE 83; RESP 16; TEMP 36.7; O2SAT 97; BMI 21.4
--- NOTE | 2023-03-07 17:43 | W.ED.WEAKNES ---
HPI - Weakness General: Chief complaint: Weakness Stated complaint: sent from doctor for TIA Time Seen by Provider: 03/07/23 17:34 Source: patient Mode of arrival: ambulatory Limitations: no limitations History of Present Illness: 52-year-old female who had been seen 2 weeks ago for TIA patient was admitted she is followed up with neurology has an MRI scheduled in 2 weeks states that today started to have some numbness feeling down her left arm states she just felt weird she called her PCP who told her to come to the ER she since has had resolution of her symptoms she is answering all my questions appropriately has no weakness was able to ambulate. Associated symptoms: Denies chest pain, chills, fever(s), headache(s), nausea or vomiting Review of Systems Const: Denies: fever(s), chills, body aches or change in appetite Eyes: Denies: blurry vision or eye discomfort ENMT: Denies: throat pain or dental pain Card: Denies: chest pain Resp: Denies: dyspnea GI: Denies: abdominal pain, nausea, vomiting or diarrhea Musc: Denies: neck pain or back pain Skin/Breast: Denies: rash Neuro: Denies: headache(s) PFSH ED PFSH: Medical History Endometriosis Lyme disease H/O Domo thyroiditis Blurred vision, bilateral Stroke-like symptoms History of thyroid disease Weight gain High blood pressure determined by examination Internal derangement of right shoulder Right shoulder strain Irritable bowel syndrome Psoriasis Post-traumatic stress disorder, chronic Major depressive disorder, recurrent, moderate Surgical History H/O colonoscopy H/O esophagogastroduodenoscopy 09/2000 Hx of cholecystectomy History of repair of hiatal hernia History of nasal surgery History of prior ablation treatment uterine Family History Sister Anesthesia complication Mother Heart disease Carotid artery disease Other Bleeding disorder CAD (coronary artery disease) Diabetes Social History Smoking and tobacco/nicotine status: former use of tobacco/nicotine Second hand smoke exposure: No Alcohol intake: never Substance/Drug Use: never Caregiver/support person: Yes Lives independently: Yes Household members: spouse Housing: House Marital status: Current occupational status: disabled Current gender identity: Female Female Reproductive History: Spontaneous abortions: No Physical Exam Const: COMMON NORMALS: no acute distress, patient oriented x3 and healthy appearing HENMT: COMMON NORMALS: normocephalic and atraumatic HEAD & SCALP: normocephalic and atraumatic Eye: COMMON NORMALS: Equal, round and reactive pupils present and EOMs intact bilaterally PUPIL: Yes Equal, round and reactive pupils present Neck/C-Spine: COMMON NORMALS: full ROM and supple Chest: COMMONS NORMALS: normal inspection of the chest Resp: COMMON NORMALS: normal respiratory effort Cardio: COMMON NORMALS: regular rate, regular rhythm and No murmurs present (Cardio) RATE: regular rate RHYTHM: regular rhythm Extremity: COMMON NORMALS: normal to inspection and full ROM Neuro: COMMON NORMALS: patient oriented x3, moves all extremities and no focal motor deficits Psych: COMMON NORMALS: mental status grossly normal, Normal thought process present and cooperative THOUGHT PROCESS: Normal thought process present Skin: COMMON NORMALS: no rashes or lesions noted and no wounds GENERAL SKIN EXAM: no rashes or lesions noted Course Vital Signs: Vital signs: Vital Signs Temperature 98.1 F 03/07/23 17:28 Pulse Rate 83 03/07/23 17:28 Respiratory Rate 16 03/07/23 17:28 Blood Pressure 185/103 03/07/23 17:28 Pulse Oximetry 97 03/07/23 17:28 Oxygen Delivery Me thod Room Air 03/07/23 17:28 MDM - Weakness Medical Decision Making Patient presents here with a TIA her symptoms have completely resolved she is well-appearing here she is to continue her meds she is to follow-up with her neurologist and return if worsening she understands agrees to plan. Medical Records I reviewed the patient's medical records. No radiology studies performed this visit EKG Data EKG 1: I personally reviewed and interpreted this EKG as follows: EKG interpretation date: 03/07/23 EKG interpretation time: 18:22 Interpretation: nsr hr [address] or t wave abnormalities qrs 85 qtc 410 Discharge Plan Discharge Patient Disposition: Home Clinical Impression: Brain TIA Condition: Stable Prescriptions: No Action atorvastatin 20 mg tablet 20 mg PO BEDTIME 90 Days Qty: 90 3RF aspirin 81 mg tablet,delayed release (DR/EC) 81 mg PO DAILY 90 Days Qty: 90 3RF omega [id number]-fish oil [Fish Oil] 1,000 mg (120 mg-180 mg) capsule 1 cap PO BID 90 Days Qty: 180 3RF Rx Instructions: may change brand/type/size fishoil per insurance coverage Probiotic 15 billion cell capsule, sprinkle 1 cap PO DAILY Rx Instructions: do not crush/chew/cut; swallow whole OR may open and sprinkle in cold drink/food Discharge Orders: Discharge ED (Routine); Ordered 03/07/23 Ordered By: Deann Marrero Referrals: Maria Isabel Ramos MD [Primary Care Provider] - 4-7 days Discharge Diet: Advance as tolerated Discharge Activity: Resume usual activity Patient Instructions: Transient Ischemic Attack (ED) Coding Level of Care Code ED Geospatial Specialist for [facility]ion Ir[place] NIH stroke score NIHSS Level Of Consciousness - 1a: 0 Level Of Consciousness Questions - 1b: Both Correct Level Of Consciousness Commands - 1c: Both Correct Best Gaze - 2: Normal Visual Mcclellan - 3: No Visual Loss Facial Palsy - 4: Normal Motor Arm Right - 5: No Drift Motor Arm Left - 5: No Drift Motor Leg Right - 6: No Drift Motor Leg Left - 6: No Drift Limb Ataxia - 7: Absent Sensory - 8: Normal Best Language - 9: No Aphasia Dysarthia - 10: Normal Extinction And Inattention - 11: 0 Score Total Score: 0
--- NOTE | 2023-03-07 18:22 | ECG_ITS ---
[facility] Test Date: 2023-03-07 Pat Name: Roseline Murry Department: Room: Gender: Female Research Chef: : 1970 Requested By: Deann Marrero Order Number: [id number] Allie MD: Yasmin Lopez M.D. Measurements Intervals [place] Rate: 64 P: 54 OK: 141 QRS: -5 QRSD: 85 T: 37 QT: 401 QTc: 414 Interpretive Statements SINUS RHYTHM LEFT ATRIAL ENLARGEMENT [-0.15mV P-WAVE IN V1/V2] POSSIBLE RIGHT VENTRICULAR CONDUCTION DELAY [RSR (QR) IN V1/V2] PROBABLE SEPTAL MYOCARDIAL INFARCTION , PROBABLY OLD [35 ms Q WAVE IN V1/V2] Compared to ECG 02/18/2023 17:10:26 Myocardial infarct finding now present Electronically Signed On 03-08-2023 10:08:30 OFFICE ASST by Yasmin Lopez M.D. [email or web address]
[2023-03-07 19:03] VITALS: BP 148/84; PULSE 70; RESP 20; O2SAT 99
== END 2023-03-07 19:04 | disposition home or self-care (01) ==
PROVIDERS: Emergency Provider Emergency Medicine; PCP Family Medicine
DX: G45.9 Transient cerebral ischemic attack, unspecified (principal); Z79.82 Long term (current) use of aspirin; Z87.891 Personal history of nicotine dependence
CPT/HCPCS: 93005; 99283

== ENCOUNTER → 2023-03-16 08:42 | Outpatient (BNVA) | payer BC, SELFPAY | PROVIDERS: PCP Family Medicine; Visit Provider Obstetrics & Gynecology | DX: Z01.818 Encounter for other preprocedural examination (principal); R87.619 Unspecified abnormal cytological findings in specimens from cervix uteri | CPT/HCPCS: 81025; 88305 ==

== ENCOUNTER 2023-03-25 09:53 | Outpatient (CLI) | payer BC, SELFPAY ==
--- NOTE | 2023-03-25 10:15 | MR_ITS ---
WS: [id number] MRI HEAD WITHOUT CONTRAST TECHNIQUE: Sagittal T1, T2 axial, T2 axial FLAIR, axial and coronal T1 images, axial susceptibility w eighted imaging, axial diffusion weighted images, and coronal T2 images were obtained. CLINICAL INFORMATION: G45.9 - Transient cerebral ischemic attack, unspecified COMPARISON: CTA 02/18/2023 FINDINGS: No evidence of restricted diffusion to suggest acute ischemia. Ventricular system and basal cisterns are patent. Mild small vessel changes. Mild parenchymal volume loss. Normal posterior fossa. Normal v ascular flow voids at the skull base. No extra-axial fluid collections. No evidence of mass or mass e ffect. Paranasal sinuses and mastoid air cells are well aerated. No hemosiderin on susceptibly weighted images. Normal optic chiasm and pituitary infundibulum. Tempor al lobes and hippocampal formations are normal in appearance. No other suspicious intracranial findin gs. IMPRESSION: 1. No evidence of restricted diffusion to suggest acute ischemia. 2. Mild small vessel changes with mild parenchymal volume loss. 3. No hemosiderin on the susceptibly weighted images. 4. Temporal lobes and hippocampal formations are normal in appearance. 5. No other suspicious findings.
== END 2023-03-25 09:54 | disposition home or self-care (01) ==
LOC: RAD 09:54
PROVIDERS: PCP Family Medicine; Visit Provider Specialist
DX: G45.9 Transient cerebral ischemic attack, unspecified (principal); G43.101 Migraine with aura, not intractable, with status migrainosus; I99.9 Unspecified disorder of circulatory system
CPT/HCPCS: 70551

== ENCOUNTER 2023-04-28 11:56 | Outpatient (CLI) | payer BC, SELFPAY ==
--- NOTE | 2023-04-28 12:00 | MM_ITS ---
WS: [id number] BILATERAL SCREENING DIGITAL TOMOSYNTHESIS MAMMOGRAM WITH CAD HISTORY: Z12.39 - Encounter for other screening for malignant neop... COMPARISON: None available. Bilateral CC and MLO views with tomosynthesis and synthetic mammography submitted. Computer aided det ection analyzed. Breast composition: The breasts are extremely dense, which lowers the sensitivity of mammography. No suspicious masses, microcalcifications or architectural distortion. Arterial calcifications and a few scattered round calcifications in each breast. IMPRESSION: MM/[place] [id number] BI-RADS: 2-Benign FOLLOW UP: 1 Year Follow-up
== END 2023-04-28 11:57 | disposition home or self-care (01) ==
LOC: MOBLMAM 12:10
PROVIDERS: PCP Obstetrics & Gynecology; Visit Provider Obstetrics & Gynecology
DX: Z12.31 Encounter for screening mammogram for malignant neoplasm of breast (principal)
CPT/HCPCS: 77063; 77067

== ENCOUNTER → 2023-05-24 16:23 | Outpatient (BNVA) | payer BC, SELFPAY | PROVIDERS: PCP Family Medicine; Visit Provider Emergency Medicine | DX: B34.9 Viral infection, unspecified (principal); J02.9 Acute pharyngitis, unspecified; J98.8 Other specified respiratory disorders; B97.89 Other viral agents as the cause of diseases classified elsewhere | CPT/HCPCS: 87071; 87400; 87426; 87880 ==

== ENCOUNTER → 2023-10-14 11:07 | Outpatient (BNVA) | payer BC, SELFPAY | PROVIDERS: PCP Family Medicine | DX: R30.0 Dysuria (principal) | CPT/HCPCS: 81000 ==

== ENCOUNTER → 2023-12-01 12:23 | Outpatient (BNVA) | payer BC, SELFPAY | PROVIDERS: PCP Family Medicine; Visit Provider Nurse Practitioner | DX: R51.9 Headache, unspecified (principal); M54.9 Dorsalgia, unspecified | CPT/HCPCS: 81000; 87400; 87426 ==

== ENCOUNTER → 2023-12-26 11:04 | Outpatient (BNVA) | payer BC, SELFPAY | PROVIDERS: PCP Family Medicine; Visit Provider Family Medicine | DX: I10 Essential (primary) hypertension (principal) | CPT/HCPCS: 80053; 80061; 84443; 85025 ==

== ENCOUNTER → 2024-04-23 16:36 | Outpatient (BNVA) | payer BC, SELFPAY | PROVIDERS: PCP Family Medicine; Visit Provider Obstetrics & Gynecology | DX: Z01.419 Encounter for gynecological examination (general) (routine) without abnormal findings (principal); B97.7 Papillomavirus as the cause of diseases classified elsewhere | CPT/HCPCS: 87624 ==

== ENCOUNTER 2024-05-24 11:24 | Outpatient (CLI) | payer BC, SELFPAY ==
--- NOTE | 2024-05-24 11:20 | MM_ITS ---
WS: [id number] SCREENING DIGITAL BREAST TOMOSYNTHESIS MAMMOGRAM WITH CAD HISTORY: SCREENING COMPARISON: 04/28/2023 Bilateral CC and MLO with tomosynthesis and synthetic mammography submitted. Computer aided detection analyzed. Breast composition: The breasts are extremely dense, which lowers the sensitivity of mammography. Seen only on the RIGHT lateral projection is a lobulated mass measuring 8 x 3 mm in the posterior RIGHT breast central to the nipple. This is in the lateral breast but not visualized on the cc. There is an additional focal asymmetry in the central LEFT breast which needs to be further evaluated. Margins are obscured of the asymmetry. Benign breast arterial calcifications. MM/MM [facility] tomosynthesis [id number] IMPRESSION: BI-RADS: 0 - Incomplete: Need additional imaging evaluation FOLLOW UP: Need Additional Imaging RIGHT breast: Spot compression views ( MLO). True ML. Exaggerated lateral RIGHT cc. Ultrasound to follow if abnormality persists. LEFT breast: Spot compression views (CC and MLO). True ML. Ultrasound to follow if abnormality persists.
== END 2024-05-24 11:25 | disposition home or self-care (01) ==
LOC: MOBLMAM 11:27
PROVIDERS: PCP Family Medicine; Visit Provider Family Medicine
DX: Z12.31 Encounter for screening mammogram for malignant neoplasm of breast (principal); R92.343 Mammographic extreme density, bilateral breasts; N63.10 Unspecified lump in the right breast, unspecified quadrant; N64.89 Other specified disorders of breast; R92.1 Mammographic calcification found on diagnostic imaging of breast
CPT/HCPCS: 77063; 77067

== ENCOUNTER → 2024-07-27 13:50 | Outpatient (BNVA) | payer BC, SELFPAY | PROVIDERS: PCP Family Medicine; Visit Provider Obstetrics & Gynecology | DX: R87.612 Low grade squamous intraepithelial lesion on cytologic smear of cervix (LGSIL) (principal) | CPT/HCPCS: 88305 ==

== ENCOUNTER → 2024-09-24 13:46 | Outpatient (BNVA) | payer BC, SELFPAY | PROVIDERS: PCP Family Medicine; Visit Provider Family Medicine | DX: I10 Essential (primary) hypertension (principal); G43.019 Migraine without aura, intractable, without status migrainosus; G45.9 Transient cerebral ischemic attack, unspecified; R53.83 Other fatigue; B97.7 Papillomavirus as the cause of diseases classified elsewhere; Z53.20 Procedure and treatment not carried out because of patient's decision for unspecified reasons | CPT/HCPCS: 80053; 80061; 82607; 84443 ==